=== PATIENT | female | born 1995 | race Two or more races ===

== ENCOUNTER 2018-06-23 18:26 | Emergency (ER) | payer OTHER ==
--- NOTE | 2018-06-23 19:15 | ED ---
Lower Extremity - HPI Summary HPI Summary: 22-year-old female presents with right ankle injury today. She states she inverted her ankle. She states the pain has progressively getting worst. She denies any numbness or tingling. Denies any previous fracture of the area. She states has been having increasing swelling to her right ankle. No medical conditions. Has not taking anything for her symptoms. - History of Current Complaint Chief Complaint: EDExtremityLower Stated Complaint: RT ANKLE INJURY Time Seen by Provider: 06/23/18 18:36 Pain Intensity: 10 - Allergies/Home Medications Allergies/Adverse Reactions: Allergies Allergy/AdvReac Type Severity Reaction Status Date / Time No Known Allergies Allergy Verified 06/23/18 18:35 PMH/Surg Hx/FS Hx/Imm Hx Endocrine/Hematology History: Denies: Hx Anticoagulant Therapy Cardiovascular History: Denies: Hx Myocardial Infarction Infectious Disease History: No Infectious Disease History: Denies: Traveled Outside the [place] in Last 30 Days - Family History Known Family History: Negative: Hypertension - Social History Alcohol Use: Weekly Substance Use Type: Reports: None Smoking Status (MU): Never Smoked Tobacco Review of Systems Negative: Fever Negative: Chest Pain Negative: Shortness Of Breath Positive: Myalgia - right ankle pain All Other Systems Reviewed And Are Negative: Yes Physical Exam Triage Information Reviewed: Yes Vital Signs On Initial Exam: Initial Vitals Temp Pulse Resp BP Pulse Ox 96.6 F 77 17 124/78 96 06/23/18 18:33 06/23/18 18:33 06/23/18 18:33 06/23/18 18:33 06/23/18 18:33 Vital Signs Reviewed: Yes Appearance: Positive: Well-Appearing Skin: Positive: Warm, Dry Head/Face: Positive: Normal Head/Face Inspection Eyes: Positive: Normal, Conjunctiva Clear ENT: Positive: Pharynx normal Respiratory/Lung Sounds: Positive: Clear to Auscultation, Breath Sounds Present Cardiovascular: Positive: Normal, RRR Musculoskeletal: Positive: Strength/ROM Intact - right ankle with pain, Other - tenderness right ankle, good pulses, capillary refill<2secs, Neurological: Positive: Normal Psychiatric: Positive: Normal Diagnostics - Vital Signs Vital Signs Temp Pulse Resp BP Pulse Ox 06/23/18 18:33 96.6 F 77 17 124/78 96 - Laboratory Lab Statement: Any lab studies that have been ordered have been reviewed, and results considered in the medical decision making process. - Radiology ankle Xray Interpretation: No Acute Changes Radiology Interpretation Completed By: ED Physician foot Xray Interpretation: No Acute Changes Radiology Interpretation Completed By: ED Physician Lower Extremity Course/Dx - Course Course Of Treatment: 22-year-old female presents with right ankle injury today. She states she inverted her ankle. She states the pain has progressively getting worst. She denies any numbness or tingling. Denies any previous fracture of the area. She states has been having increasing swelling to her right ankle. No medical conditions. Has not taking anything for her symptoms. on exam tenderness over lateral malleolus of right ankle. Neurovascular intact. X-ray of the foot and ankle read by me as no fracture. We'll give Jose L wrap postop shoe and crutches. Patient understands agrees with plan. - Diagnoses Differential Diagnosis/HQI/PQRI: Positive: Fracture (Closed), Sprain, Strain Provider Diagnoses: Right ankle injury Discharge - Sign-Out/Discharge Documenting (check all that apply): Patient Departure - Discharge Plan Condition: Good Disposition: HOME Patient Education Materials: R.I.C.E. Treatment (ED) Additional Instructions: Stay off ankle as much as possible Ice, elevate, keep in JOSE L Ibuprofen every 6 hours for pain Follow up with primary if no improvement Return to ED if develop or any new or worsening symptoms - Billing Disposition and Condition Condition: GOOD Disposition: Home
[2018-06-23] MEDS ORDERED: Ibuprofen TAB* 600 MG PO ONE (19:34)
[2018-06-23 21:04] VITALS: BP 111/70
--- NOTE | 2018-06-24 07:44 | RAD ---
INDICATION: Right ankle injury. TECHNIQUE: 3 views of the right ankle were obtained. FINDINGS: Soft tissue swelling is noted along the anterolateral aspect of the ankle. No fracture is seen. Joint spaces appear maintained. IMPRESSION: SOFT TISSUE SWELLING, NO FRACTURE IS SEEN. R0
--- NOTE | 2018-06-24 07:44 | RAD ---
HISTORY: right foot pain COMPARISONS: None VIEWS: 3 , Frontal, lateral, and oblique views of the right foot FINDINGS: BONE DENSITY: Normal. BONES: There is no displaced fracture. JOINTS: There is no arthropathy. ALIGNMENT: There is no dislocation. SOFT TISSUES: Unremarkable. OTHER FINDINGS: None. IMPRESSION: NO ACUTE OSSEOUS INJURY. IF SYMPTOMS PERSIST, RECOMMEND REPEAT IMAGING. R0
== END 2018-06-23 21:03 | disposition home or self-care (01) ==
LOC: ED 18:26
DX: S99.911A Unspecified injury of right ankle, initial encounter (principal); X58.XXXA Exposure to other specified factors, initial encounter; Y92.9 Unspecified place or not applicable
CPT/HCPCS: 99282; A9270-GY